=== PATIENT | female | born 1970 | race African-American/Black ===

== ENCOUNTER 2020-01-08 14:04 | Emergency (ER) | payer OTHER ==
[~2020-01-08] VITALS: Ht 170.2 cm; Wt 105.2 kg
[~2020-01-08 14:04] MED LIST: Lidocaine 1%/ 10mg/ml/EPI 0.01mg/ml 20ml INJ ONE
--- NOTE | 2020-01-08 14:16 | Emergency Room Report ---
History of Present Illness General Chief Complaint: Skin Rash/Abscess Source: Patient Present Illness HPI 49-year-old female, currently at a facility presents with upper back pain/skin lesion x1 week, no fever no chills, endorses sharp pain aggravated with touch itchiness, severity is moderate, constant no alleviating factors aggravating factors appear to be touching the wound patient presents for evaluation and treatment Allergies: Coded Allergies: LURASIDONE (Verified Allergy, Unknown, 01/08/20) PAROXETINE (Verified Allergy, Unknown, 01/08/20) COVID-19 Screening Contact w/high risk pt: No Experienced COVID-19 symptoms?: No COVID-19 Testing performed BARN HAND: No Patient History Past Medical History: see triage record Social History: Reports: smoking Reviewed Nursing Documentation: PMH: Agreed; PSxH: Agreed Review of Systems All Other Systems: negative except mentioned in HPI Physical Exam Vital Signs Date Time Temp Pulse Resp B/P (MAP) Pulse Ox O2 Delivery O2 Flow Rate FiO2 01/08/20 14:00 98.4 90 16 106/68 (81) 100 Room Air General Appearance: well appearing, no apparent distress Head: normocephalic, atraumatic ENT: hearing grossly normal, normal voice Neck: full range of motion, supple Respiratory: no respiratory distress, speaking full sentences Neurologic: alert, normal gait Psychiatric: mood/affect normal Skin: other - Abscess upper left lateral back Procedures Incision and Drainage Incision and Drainage : Consent: Emergent Site: Left upper back lateral Blade Size: 11 I & D Procedure: betadine prep, sterile drapes applied, sterile dressing applied, gauze wick placed Wound Location: back Wound's Depth, Shape: superficial Wound Length (cm): 2 Wound Explored: contaminated Irrigated w/ Saline (ccs): 250 Anesthesia: 1% Lidocaine, Lidocaine w/ Epi Volume Anesthetic (ccs): 10 Splint Applied?: No Patient Tolerated: Well Complications: None Medical Decision Making Diagnostic Impression: Primary Impression: Abscess ER Course 49-year-old female presents with left upper back abscess, wound was incised and drained, patient tolerated procedure well slight component of cellulitis, We will provide patient with Last Vital Signs Date Time Temp Pulse Resp B/P (MAP) Pulse Ox O2 Delivery O2 Flow Rate FiO2 01/08/20 14:00 98.4 90 16 106/68 (81) 100 Room Air Disposition: HOME, SELF-CARE Condition: Stable Scripts Trimethoprim/Sulfamethoxazole 160/800* (BACTRIM DS TABLET*) 1 Each Tablet 1 TAB ORAL Q12H, #20 TAB 0 Refills Prov: Maciel Armenta MD 01/08/20 Referrals: [facility] Dangeloismael [facility] Patient Instructions: Abscess Additional Instructions: The patient was provided with discharge instructions, notified to follow-up with a primary care doctor and or specialist in the next 24-48 hours, and to return to the ED if they have worsening of their symptoms. Please note that this report is being documented using [employer] technology. This can lead to erroneous entry secondary to incorrect interpretation by the dictating instrument. WOUND PACKING PER YOUR FACILITY PLEASE HAVE WOUND REPACKED IN 48 HOURS THEN PACKING CAN BE REMOVED ON DAY 4 Maciel Armenta MD Jan 08, 2020 14:16
[2020-01-08 14:20] VITALS: BP 106/68
[2020-01-08] MEDS ORDERED: BACTRIM DS TAB1 EAC1 ORAL (14:20)
--- NOTE | 2020-01-08 14:20 | NUR ---
ED Nurse Note:pt. came from board and care with abscess on mid back, it was I&D at bedside by Er MD, dry dressing with packing applied
[2020-01-08] MEDS ORDERED: IBUPROFEN600 M1 ORAL (14:22)
[2020-01-08] MEDS ORDERED: TYLENOL325 MG ORAL (14:22)
[2020-01-08 14:31] LABS: APPEARANCE,URINE CLEAR; BILIRUBIN, URINE NEGATIVE (NEGATIVE); GLUCOSE, URINE (UA) NEGATIVE (NEGATIVE); KETONES,URINE NEGATIVE (NEGATIVE); LEUKOCYTE ESTERASE ,URINE 1+ (NEGATIVE); NITRITE,URINE NEGATIVE (NEGATIVE); PH,URINE 8 (4.5-8.0); PROTEIN,URINE NEGATIVE (NEGATIVE); UROBILINOGEN,URINE NORMAL MG/DL (0.0-1.0)
[2020-01-08 14:33] LABS: COLOR,URINE YELLOW
--- NOTE | 2020-01-08 14:38 | NUR ---
ED Nurse Note: Pt cleared by health care Provider for discharge. DC instructions/prescription was given and explained to pt and verbalized understanding of teachings. All medical deviecs such as ID band removed. Pt is AAO x4, ambulatory and left with all personal belongings.
== END 2020-01-08 14:45 | disposition home or self-care (01) ==
LOC: EDBD 14:04 → EMR 14:36
DX: L02.212 Cutaneous abscess of back [any part, except buttock and flank] (principal); F17.200 Nicotine dependence, unspecified, uncomplicated; Z88.8 Allergy status to other drugs, medicaments and biological substances
CPT/HCPCS: 10060; 81003; 81025; Z7502; 99283

== ENCOUNTER 2020-01-16 18:57 | Inpatient (IN) | payer OTHER ==
[~2020-01-16] VITALS: Ht 170.2 cm; Wt 77.1 kg
[~2020-01-16 18:57] MED LIST changes: +BACTRIM DS TAB1 EAC1 ORAL; +IBUPROFEN600 M1 ORAL; -Lidocaine 1%/ 10mg/ml/EPI 0.01mg/ml 20ml INJ ONE; +TYLENOL325 MG ORAL
[2020-01-16] MEDS ORDERED: Acetaminophen 500mg (ES) tab ORAL ONE (19:15)
--- NOTE | 2020-01-16 19:42 | Emergency Room Report ---
History of Present Illness General Chief Complaint: Flu Like Symptoms Source: Patient Present Illness HPI 49-year-old female with history of asthma and COPD on Spiriva, rescue inhalers, Advair here with cough and subjective fever. Patient symptoms have been ongoing for 3 days and got acutely worse today. She has been using her rescue inhaler more frequently. Says she has had a productive cough with green sputum. Has generalized chest discomfort when she coughs only. Has had a headache and myalgias as well. Has not gotten a flu shot. Said that she felt like she had a fever but did not check her temperature. No chills, palpitations, back pain, abdominal pain, nausea, vomiting, diarrhea, dysuria. Allergies: Coded Allergies: LURASIDONE (Verified Allergy, Unknown, 01/08/20) PAROXETINE (Verified Allergy, Unknown, 01/08/20) COVID-19 Screening Contact w/high risk pt: No Experienced COVID-19 symptoms?: Yes COVID-19 Testing performed OPERATIONS TEAM LEADER: No Nursing Documentation-[facility] Past Medical History: No History, Except For Review of Systems All Other Systems: negative except mentioned in HPI Physical Exam Vital Signs Date Time Temp Pulse Resp B/P (MAP) Pulse Ox O2 Delivery O2 Flow Rate FiO2 01/16/20 18:59 100.2 90 17 122/84 (97) 99 Room Air Sp02 EP Interpretation: reviewed, normal General Appearance: no apparent distress, alert, non-toxic Head: normocephalic, atraumatic Eyes: bilateral eye normal inspection, bilateral eye PERRL ENT: hearing grossly normal, normal pharynx, no angioedema, normal voice Neck: full range of motion, supple/symm/no masses Respiratory: chest non-tender, speaking full sentences, other - Mild expiratory wheezes on examination diffusely Cardiovascular #1: regular rate, rhythm, no edema Cardiovascular #2: 2+ carotid (R), 2+ carotid (L), 2+ radial (R), 2+ radial (L), 2+ dorsalis pedis (R), 2+ dorsalis pedis (L) Gastrointestinal: normal bowel sounds, non tender, soft, non-distended, no guarding, no rebound Rectal: deferred Genitourinary: normal inspection, no CVA tenderness Musculoskeletal: back normal, normal range of motion, gait/station normal, non- tender Neurologic: alert, motor strength/tone normal, oriented x3, sensory intact, responsive, speech normal Psychiatric: judgement/insight normal, memory normal, mood/affect normal, no suicidal/homicidal ideation Lymphatic: no adenopathy Medical Decision Making Diagnostic Impression: Primary Impression: Influenza-like symptoms Additional Impressions: COPD exacerbation Hypokalemia ER Course EXAM: XR Chest, 1 View CLINICAL HISTORY: COUGH TECHNIQUE: Frontal view of the chest. COMPARISON: No relevant prior studies available. FINDINGS: Lungs: Unremarkable. No consolidation. Pleural space: Unremarkable. No pneumothorax. Heart: Unremarkable. No cardiomegaly. Mediastinum: Unremarkable. Bones/joints: Unremarkable. IMPRESSION: No acute cardiopulmonary disease. 49-year-old female with history of COPD and asthma here with generalized malaise and fever. Patient was hemodynamic stable and neurovascular intact. She had normal oxygen saturation on room air. She had a mildly elevated temperature of 100.2 and was given Tylenol. She had mild wheezing on examination no evidence of severe shortness of breath. She was given 60 mg of prednisone in the emergency department. She was found to be positive for cocaine, PCP, THC. Patient was found of a critically low potassium of 2.3. This was repleted in the emergency department with IV and p.o. potassium. EKG showed evidence of prolonged QTC of 499. Otherwise normal EKG. No U waves. Patient to be admitted to telemetry. Signed out to oncoming physician Dr. Killian. EKG: NSR, no ischemia, long QTC 499. No ectopy Rhythm strip: patient monitored for arrhythmias - no malignant dysrhythmias, runs of PVCs, nor pauses noted Last Vital Signs Date Time Temp Pulse Resp B/P (MAP) Pulse Ox O2 Delivery O2 Flow Rate FiO2 01/16/20 18:59 100.2 90 17 122/84 (97) 99 Room Air Joel Mayer M.D. Jan 16, 2020 19:42
[2020-01-16 19:51] VITALS: BP 122/84
--- NOTE | 2020-01-16 20:00 | Diagnostic Imaging Report ---
EXAM: XR Chest, 1 View CLINICAL HISTORY: COUGH TECHNIQUE: Frontal view of the chest. COMPARISON: No relevant prior studies available. FINDINGS: Lungs: Unremarkable. No consolidation. Pleural space: Unremarkable. No pneumothorax. Heart: Unremarkable. No cardiomegaly. Mediastinum: Unremarkable. Bones/joints: Unremarkable. IMPRESSION: No acute cardiopulmonary disease.
[2020-01-16 20:22] LABS: BASOPHILS % (AUTO) 1.2 % (0.0-2.0); EOSINOPHILS % (AUTO) 4.3 % (0.0-3.0); HEMATOCRIT 35.3 % (37.0-47.0); HEMOGLOBIN 11.3 G/DL (12.0-16.0); LYMPHOCYTES % (AUTO) 40.6 % (20.0-45.0); MEAN CORPUSCULAR VOLUME 86 FL (80-99); MONOCYTES % (AUTO) 8.2 % (1.0-10.0); NEUTROPHILS % (AUTO) 45.7 % (45.0-75.0); PLATELET COUNT 246 K/UL (150-450); RED BLOOD COUNT 4.11 M/UL (4.20-5.40); RED CELL DISTRIBUTION WIDTH 15.3 % (11.6-14.8); WHITE BLOOD COUNT 4.4 K/UL (4.8-10.8)
[2020-01-16 20:26] LABS: ALANINE AMINOTRANSFERASE 35 U/L (12-78); ALBUMIN 3.3 G/DL (3.4-5.0); ALBUMIN/GLOBULIN RATIO 0.8 (1.0-2.7); ALKALINE PHOSPHATASE 77 U/L (46-116); ASPARTATE AMINO TRANSFERASE 30 U/L (15-37); BILIRUBIN,TOTAL 0.3 MG/DL (0.2-1.0); BLOOD UREA NITROGEN 12 mg/dL (7-18); CALCIUM 8.5 MG/DL (8.5-10.1)
[2020-01-16 20:29] LABS: CARBON DIOXIDE 25 MMOL/L (21-32); CHLORIDE 105 MMOL/L (98-107); POTASSIUM 2.3 MMOL/L (3.5-5.1); SODIUM 140 MMOL/L (136-145)
[2020-01-16 20:30] LABS: ANION GAP 10 mmol/L (5-15)
[2020-01-16 20:43] LABS: BILIRUBIN, URINE NEGATIVE (NEGATIVE); COLOR,URINE PALE YELLOW; GLUCOSE, URINE (UA) NEGATIVE (NEGATIVE); KETONES,URINE NEGATIVE (NEGATIVE); LEUKOCYTE ESTERASE ,URINE 1+ (NEGATIVE); NITRITE,URINE NEGATIVE (NEGATIVE); PH,URINE 8 (4.5-8.0); PROTEIN,URINE NEGATIVE (NEGATIVE); UROBILINOGEN,URINE NORMAL MG/DL (0.0-1.0)
[2020-01-16 20:47] LABS: APPEARANCE,URINE SLIGHTLY CLOUDY
[2020-01-16] MEDS ORDERED: cefTRIAXone 1 GM in NS 55 ML IVPB ONE (21:15)
[2020-01-16 22:30] VITALS: BP 134/90
[2020-01-16] MEDS: Albuterol/Ipratropium 3ml neb HHN SCH ×5 (22:30→23:37)
[2020-01-17] VITALS (7 sets, daily range): BP systolic 114–146; BP diastolic 60–87
[2020-01-17 02:48] LABS: ALANINE AMINOTRANSFERASE 33 U/L (12-78); ALBUMIN 3.1 G/DL (3.4-5.0); ALBUMIN/GLOBULIN RATIO 0.8 (1.0-2.7); ALKALINE PHOSPHATASE 74 U/L (46-116); ASPARTATE AMINO TRANSFERASE 25 U/L (15-37); BILIRUBIN,TOTAL 0.2 MG/DL (0.2-1.0); BLOOD UREA NITROGEN 9 mg/dL (7-18); CALCIUM 8.1 MG/DL (8.5-10.1); CARBON DIOXIDE 24 MMOL/L (21-32)
[2020-01-17 02:56] LABS: CHLORIDE 108 MMOL/L (98-107); POTASSIUM 2.9 MMOL/L (3.5-5.1); SODIUM 140 MMOL/L (136-145)
[2020-01-17] MEDS ORDERED: Omnipaque-300 100ml vial INJ ONE (03:15)
[2020-01-17] MEDS ORDERED: Albuterol/Ipratropium 3ml neb HHN ONE (03:15)
[2020-01-17] MEDS ORDERED: Fluconazole 150mg tab ONE (04:28)
[2020-01-17] MEDS ORDERED: Fluconazole 150mg tab ORAL ONE (04:30)
--- NOTE | 2020-01-17 05:08 | Diagnostic Imaging Report ---
EXAM: CT Lumbar Spine With Intravenous Contrast CLINICAL HISTORY: PAIN TECHNIQUE: Axial computed tomography images of the lumbar spine with intravenous contrast. CTDI is 15.20 mGy and DLP is 832.40 mGy-cm. One or more of the following dose reduction techniques were used: automated exposure control, adjustment of the mA and/or kV according to patient size, use of iterative reconstruction technique. COMPARISON: No relevant prior studies available. FINDINGS: The vertebral body heights are maintained. The lumbar lordosis is preserved. There is no spondylolisthesis. The posterior elements are maintained, without evidence of acute fracture. The pedicles are intact. Multilevel degenerative end plate changes. The disc spaces are relatively preserved. Calcified disc bulge at L2-3 which contribute to mild spinal canal stenosis. Disc bulge at L4-5 which contribute to mild spinal canal stenosis. Moderate bilateral foraminal stenosis at L4-5. Atherosclerotic calcifications of the aorta. The kidneys symmetrically enhance. No hydronephrosis. Moderate fatigue with tension, correlate for constipation. Normal CT appearance of the uterus and urinary bladder. Intact superior and inferior pubic rami with degenerative changes of the bilateral hips. IMPRESSION: No lumbar spine fracture. Multilevel lumbar spondylosis, as described.
[2020-01-17] MEDS ORDERED: BUPROPION HCL75 MG PO (12:27)
[2020-01-17] MEDS ORDERED: QUETIAPINE FUM400 MG ORAL (12:27)
[2020-01-17] MEDS ORDERED: BUPROPION XL300 MG ORAL (12:27)
[2020-01-17] MEDS ORDERED: SEROQUEL200 MG ORAL (12:27)
[2020-01-17] MEDS ORDERED: TOPIRAMATE100 MG ORAL (12:27)
[2020-01-17] MEDS ORDERED: FERROUS SULFAT325 MG ORAL (12:55)
[2020-01-17] MEDS ORDERED: AMLODIPINE BESYL5 MG ORAL (12:55)
[2020-01-17] MEDS ORDERED: HYDROCHLOROTHIA25 MG ORAL (12:55)
[2020-01-17] MEDS ORDERED: MINIPRESS1 MG PO (12:55)
[2020-01-17] MEDS ORDERED: GABAPENTIN800 MG ORAL (12:55)
[2020-01-17] MEDS ORDERED: ATIVAN1 MG ORAL (12:55)
[2020-01-17] MEDS ORDERED: Spironolactone 25mg tab ORAL SCH (13:30)
--- NOTE | 2020-01-17 13:36 | Consultation ---
History of Present Illness General Date patient seen: Jan 17, 2020 Reason for Hospitalization: Flu Like Symptoms Present Illness HPI This is a very pleasant 49-year-old female with history of COPD on inhalers that recently presented to emergency department with a back abscess status post I&D and now being admitted for respiratory issues will states that she still has pain in that area with skin breakdown discomfort she cannot reach her self see herself and surgery was called to evaluate and assist with care. Patient seen, patient evaluated, chart reviewed no nausea vomiting fever chills. States she feels better but can notice when she wears her bra that there is a abnormality back there and would like it evaluated. Allergies: Coded Allergies: LURASIDONE (Verified Allergy, Unknown, 01/08/20) PAROXETINE (Verified Allergy, Unknown, 01/08/20) COVID-19 Screening Contact w/high risk pt: No Experienced COVID-19 symptoms?: Yes Coronavirus symptoms experienc: Fever (T>100.4F or >38C) Medication History Scheduled Amlodipine Besylate* (Amlodipine Besylate*), 5 MG ORAL DAILY, (Reported) Bupropion Hcl* (Bupropion Hcl*), 75 MG PO TID, (Reported) Bupropion Hcl* (Wellbutrin*), 300 MG ORAL DAILY, (Reported) Ferrous Sulfate* (Ferrous Sulfate*), 325 MG ORAL TWICE A DAY, (Reported) Gabapentin* (Gabapentin*), 800 MG ORAL BID, (Reported) Hydrochlorothiazide* (Hydrochlorothiazide*), 25 MG ORAL DAILY, (Reported) Lorazepam* (Ativan*), 1 MG ORAL BID, (Reported) Prazosin Hcl* (Minipress*), 2 MG PO QHS, (Reported) Quetiapine Fumarate* (Seroquel*), 200 MG ORAL DAILY, (Reported) Quetiapine Fumarate* (Quetiapine Fumarate*), 400 MG ORAL QHS, (Reported) Topiramate* (Topamax*), 200 MG ORAL QHS, (Reported) Scheduled PRN Acetaminophen (Tylenol), 650 MG ORAL Q6H PRN for Prn Pain/Headache/Temp > 101 Discontinued Medications Ibuprofen* (Motrin*), 600 MG ORAL Q8H PRN for FOR PAIN Discontinued Reason: Therapy completed Trimethoprim/Sulfamethoxazole 160/800* (Bactrim Ds Tablet*), 1 TAB ORAL Q12H Discontinued Reason: Therapy completed Patient History History Provided By: Patient, Medical Record, PMD Healthcare decision maker Resuscitation status Advanced Directive on File Past Medical/Surgical History Past Medical/Surgical History: (1) Abscess (2) Hypokalemia (3) Influenza-like symptoms (4) Weakness (5) COPD exacerbation Review of Systems Review of Symptoms General ROS: no weight loss or fever Psychological ROS: no depression or mood changes, no memory loss Ophthalmic ROS: no visual changes or eye irritation ENT ROS: no nasal congestion, hearing loss, dizziness Allergy and Immunology ROS: no allergic symptoms or urticaria Hematological and Lymphatic ROS: no swollen glands, unusual bleeding or bruising Endocrine ROS: no polyuria, polydipsia, weight changes, temperature intolerance Respiratory ROS: no cough, shortness of breath, or wheezing Cardiovascular ROS: no chest pain or dyspnea on exertion Gastrointestinal ROS: denies abdominal pain, bright red blood in stool. Musculoskeletal ROS: no myalgias or arthralgias Neurological ROS: no TIA or stroke symptoms Dermatological ROS: no new or changing skin lesions, rashes or pruritis Physical Exam Physical Exam General appearance: alert, cooperative, no distress, appears stated age Head: Normocephalic, without obvious abnormality, atraumatic Eyes: conjunctivae/corneas clear. PERRL, EOM's intact. Fundi benign Throat: Lips, mucosa, and tongue normal. Teeth and gums normal Neck: supple, symmetrical, trachea midline, no adenopathy, thyroid: not enlarged, symmetric, no tenderness/mass/nodules, no carotid bruit and no JVD Lungs: clear to auscultation bilaterally Heart: regular rate and rhythm, S1, S2 normal, no murmur, click, rub or gallop Abdomen: soft, non-tender. Bowel sounds normal. No masses, no organomegaly Extremities: extremities normal, atraumatic, no cyanosis or edema Pulses: 2+ and symmetric Skin: Skin color, texture, turgor normal. No rashes or lesions Neurologic: Grossly normal Last 24 Hour Vital Signs Date Time Temp Pulse Resp B/P (MAP) Pulse Ox O2 Delivery O2 Flow Rate FiO2 01/17/20 08:14 98.5 86 19 144/82 100 Room Air 01/17/20 07:05 98.2 88 21 135/84 98 Room Air 01/17/20 05:00 98.0 82 20 145/80 98 Room Air 21 01/17/20 03:22 73 24 100 Room Air 21 76 19 99 01/17/20 02:32 98.4 76 16 128/87 100 Room Air 21 01/16/20 23:30 86 20 100 Room Air 21 83 20 100 01/16/20 23:20 81 20 100 Room Air 21 78 20 100 01/16/20 23:10 79 20 100 Room Air 21 76 20 98 01/16/20 22:30 99.8 78 17 134/90 99 Room Air 01/16/20 20:14 99.1 01/16/20 19:51 100.2 90 17 122/84 99 Room Air 01/16/20 19:51 90 17 Room Air 01/16/20 18:59 100.2 90 17 122/84 (97) 99 Room Air Laboratory Tests Test 01/16/20 19:45 01/17/20 02:25 White Blood Count 4.4 K/UL (4.8-10.8) L Red Blood Count 4.11 M/UL (4.20-5.40) L Hemoglobin 11.3 G/DL (12.0-16.0) L Hematocrit 35.3 % (37.0-47.0) L Mean Corpuscular Volume 86 FL (80-99) Mean Corpuscular Hemoglobin 27.5 PG (27.0-31.0) Mean Corpuscular Hemoglobin Concent 32.0 G/DL (32.0-36.0) Red Cell Distribution Width 15.3 % (11.6-14.8) H Platelet Count 246 K/UL (150-450) Mean Platelet Volume 8.0 FL (6.5-10.1) Neutrophils (%) (Auto) 45.7 % (45.0-75.0) Lymphocytes (%) (Auto) 40.6 % (20.0-45.0) Monocytes (%) (Auto) 8.2 % (1.0-10.0) Eosinophils (%) (Auto) 4.3 % (0.0-3.0) H Basophils (%) (Auto) 1.2 % (0.0-2.0) Urine Color Pale yellow Urine Appearance Slightly cloudy Urine pH 8 (4.5-8.0) Urine Specific Phyllis 1.010 (1.005-1.035) Urine Protein Negative (NEGATIVE) Urine Glucose (UA) Negative (NEGATIVE) Urine Ketones Negative (NEGATIVE) Urine Blood 3+ (NEGATIVE) H Urine Nitrite Negative (NEGATIVE) Urine Bilirubin Negative (NEGATIVE) Urine Urobilinogen Normal MG/DL (0.0-1.0) Urine Leukocyte Esterase 1+ (NEGATIVE) H Urine RBC 2-4 /HPF (0 - 2) H Urine WBC 0-2 /HPF (0 - 2) Urine Squamous Epithelial Cells Many /LPF (NONE/OCC) H Urine Bacteria Moderate /HPF (NONE) H Urine HCG, Qualitative Negative (NEGATIVE) Sodium Level 140 MMOL/L (136-145) 140 MMOL/L (136-145) Potassium Level 2.3 MMOL/L (3.5-5.1) *L 2.9 MMOL/L (3.5-5.1) L Chloride Level 105 MMOL/L (98-107) 108 MMOL/L (98-107) H Carbon Dioxide Level 25 MMOL/L (21-32) 24 MMOL/L (21-32) Anion Gap 10 mmol/L (5-15) Blood Urea Nitrogen 12 mg/dL (7-18) 9 mg/dL (7-18) Creatinine 1.0 MG/DL (0.55-1.30) 1.0 MG/DL (0.55-1.30) Estimat Glomerular Filtration Rate > 60 mL/min (>60) > 60 mL/min (>60) Glucose Level 98 MG/DL (74-106) 142 MG/DL (74-106) H Calcium Level 8.5 MG/DL (8.5-10.1) 8.1 MG/DL (8.5-10.1) L Magnesium Level 2.4 MG/DL (1.8-2.4) Total Bilirubin 0.3 MG/DL (0.2-1.0) 0.2 MG/DL (0.2-1.0) Aspartate Amino Transf (AST/SGOT) 30 U/L (15-37) 25 U/L (15-37) Alanine Aminotransferase (ALT/SGPT) 35 U/L (12-78) 33 U/L (12-78) Alkaline Phosphatase 77 U/L (46-116) 74 U/L (46-116) Total Protein 7.3 G/DL (6.4-8.2) 7.2 G/DL (6.4-8.2) Albumin 3.3 G/DL (3.4-5.0) L 3.1 G/DL (3.4-5.0) L Globulin 4.0 g/dL 4.1 g/dL Albumin/Globulin Ratio 0.8 (1.0-2.7) L 0.8 (1.0-2.7) L Urine Opiates Screen Negative (NEGATIVE) Urine Barbiturates Screen Negative (NEGATIVE) Phencyclidine (PCP) Screen Positive (NEGATIVE) H Urine Amphetamines Screen Negative (NEGATIVE) Urine Benzodiazepines Screen Negative (NEGATIVE) Urine Cocaine Screen Positive (NEGATIVE) H Urine Marijuana (THC) Screen Positive (NEGATIVE) H Thyroid Stimulating Hormone (TSH) 1.628 uiU/mL (0.358-3.740) Microbiology Date/Time Source Procedure Growth Status 01/16/20 21:30 Nasopharynx SARS-CoV-2 RdRp Gene Assay - Final Complete 01/16/20 19:45 Nose - Final Complete 01/16/20 19:45 Nose - Final Complete Height (Feet): 5 Height (Inches): 7.00 Weight (Pounds): 170 Medications Current Medications Medications (Trade) Dose Ordered Sig/Adelso Route PRN Reason Start Time Stop Time Status Last Admin Dose Admin Albuterol/ Ipratropium (Albuterol/ Ipratropium) 3 ml Q15M [facility] 01/16/20 21:30 01/17/20 17:00 01/16/20 23:29 Albuterol/ Ipratropium (Albuterol/ Ipratropium) 3 ml Q4HRT [facility] 01/17/20 15:00 01/22/20 14:59 Amlodipine Besylate (Norvasc) 5 mg DAILY ORAL 01/18/20 09:00 02/17/20 08:59 Bupropion HCl (Wellbutrin SR) 300 mg DAILY ORAL 01/17/20 13:30 02/16/20 13:29 Ceftriaxone Sodium 1 gm/ Dextrose 55 ml @ 110 mls/hr Q24H IVPB 01/17/20 18:00 01/24/20 17:59 Clonidine HCl (Catapres Tab) 0.1 mg Q4H PRN ORAL sbp above 150 01/17/20 13:30 04/16/20 13:29 Lactobacillus Acidophilus (Culturelle) 1 tab THREE TIMES A DAY ORAL 01/17/20 18:00 04/16/20 17:59 Lorazepam (Ativan) 1 mg BIDPRN PRN ORAL anxiety 01/17/20 13:30 01/24/20 13:29 Potassium Chloride (K-Dur) 40 meq ONCE ORAL 01/17/20 13:30 01/17/20 16:00 Quetiapine Fumarate (SEROqueL) 200 mg DAILY ORAL 01/18/20 09:00 03/03/20 08:59 Quetiapine Fumarate (SEROqueL) 400 mg BEDTIME ORAL 01/17/20 21:00 03/02/20 20:59 Spironolactone (Aldactone) 25 mg DAILY ORAL 01/18/20 09:00 02/17/20 08:59 Spironolactone (Aldactone) 25 mg ONCE ORAL 01/17/20 13:30 01/17/20 16:30 Assessment/Plan Problem List: (1) Hypokalemia ICD Codes: E87.6 - Hypokalemia SNOMED: 05930218 (2) Influenza-like symptoms ICD Codes: R68.89 - Other general symptoms and signs SNOMED: 293817764 (3) Abscess Assessment & Plan: 49-year-old female with a back abscess status post I&D a few days ago which is slowly healing since. There is a soft area induration still remaining no fluid collection no fluctuance I&D site noted healed closing. Scab formation identified. Periwound skin breakdown the epidermal region with dry skin. Fortunately at this time no further incision and drainage is necessary. Wound washed at bedside. Skin protectant applied for patient discomfort. Dressings applied. Will monitor over the course next day or 2 to ensure healing. Thank you for let me participate patient's care will follow with recommendations. The posterior elements are maintained, without evidence of acute fracture. The pedicles are intact. Multilevel degenerative end plate changes. The disc spaces are relatively preserved. Calcified disc bulge at L2-3 which contribute to mild spinal canal stenosis. Disc bulge at L4-5 which contribute to mild spinal canal stenosis. Moderate bilateral foraminal stenosis at L4-5. Atherosclerotic calcifications of the aorta. The kidneys symmetrically enhance. No hydronephrosis. Moderate fatigue with tension, correlate for constipation. Normal CT appearance of the uterus and urinary bladder. Intact superior and inferior pubic rami with degenerative changes of the bilateral hips. IMPRESSION: No lumbar spine fracture. Multilevel lumbar spondylosis, as described. ICD Codes: L02.91 - Cutaneous abscess, unspecified SNOMED: 708243434 (4) Weakness ICD Codes: R53.1 - Weakness SNOMED: 81602108 (5) COPD exacerbation ICD Codes: J44.1 - Chronic obstructive pulmonary disease with (acute) exacerbation SNOMED: 652986505 Yfn Sparks Jan 17, 2020 13:36
[2020-01-17] MEDS: BuPROPion SR 150mg tab ORAL SCH (15:12)
[2020-01-17] MEDS: Albuterol/Ipratropium 3ml neb HHN SCH ×3 (15:50→23:21)
[2020-01-17] MEDS: cefTRIAXone 1 GM in D5W 55 ML IVPB SCH (17:30)
[2020-01-17] MEDS: Lactobacillus-GG tablet ORAL SCH (17:30)
[2020-01-17] MEDS: LORazepam 1mg tab ORAL PRN (18:48)
--- NOTE | 2020-01-17 19:25 | Cardiology Progress Note ---
Subjective DATE OF SERVICE: Jan 17, 2020 Combative and refusing care early this morning; now cooperative and compliant. States she is upset about having low potassium all the time. Says she knows she has PNA. Now says she has COPD since age 28. Urine tox. screen positive for PCP and cocaine. Objective Last 24 Hour Vital Signs Date Time Temp Pulse Resp B/P (MAP) Pulse Ox O2 Delivery O2 Flow Rate FiO2 01/17/20 18:48 108 24 146/70 94 01/17/20 16:00 79 01/17/20 16:00 97.5 108 20 146/70 (95) 94 01/17/20 15:50 12 18 98 Room Air 21 01/17/20 15:50 78 20 99 Room Air 21 72 18 98 01/17/20 14:22 Room Air 01/17/20 12:00 97.5 107 20 114/60 (78) 92 01/17/20 08:14 98.5 86 19 144/82 100 Room Air 01/17/20 08:00 97.5 70 22 124/67 (86) 92 01/17/20 07:05 98.2 88 21 135/84 98 Room Air 01/17/20 05:00 98.0 82 20 145/80 98 Room Air 21 01/17/20 03:22 73 24 100 Room Air 21 76 19 99 01/17/20 02:32 98.4 76 16 128/87 100 Room Air 21 01/16/20 23:30 86 20 100 Room Air 21 83 20 100 01/16/20 23:20 81 20 100 Room Air 21 78 20 100 01/16/20 23:10 79 20 100 Room Air 21 76 20 98 01/16/20 22:30 99.8 78 17 134/90 99 Room Air 01/16/20 20:14 99.1 01/16/20 19:51 100.2 90 17 122/84 99 Room Air 01/16/20 19:51 90 17 Room Air ROS: unchanged from 01/16/20, unless noted. HEENT: normal ENT inspection, other - scant thrush; tongue ring site clean RHYTHM: NSR LUNGS: bilateral rhonchi - few CARDIAC: normal rate, regular rhythm, normal S1 and S2 ABDOMEN: normal bowel sounds, non tender, soft, no organomegaly EXTREMITIES: normal range of motion, non-tender, trace edema, other - strength intact, but gait unsteady Laboratory Tests Test 01/16/20 19:45 01/17/20 02:25 White Blood Count 4.4 K/UL (4.8-10.8) L Red Blood Count 4.11 M/UL (4.20-5.40) L Hemoglobin 11.3 G/DL (12.0-16.0) L Hematocrit 35.3 % (37.0-47.0) L Mean Corpuscular Volume 86 FL (80-99) Mean Corpuscular Hemoglobin 27.5 PG (27.0-31.0) Mean Corpuscular Hemoglobin Concent 32.0 G/DL (32.0-36.0) Red Cell Distribution Width 15.3 % (11.6-14.8) H Platelet Count 246 K/UL (150-450) Mean Platelet Volume 8.0 FL (6.5-10.1) Neutrophils (%) (Auto) 45.7 % (45.0-75.0) Lymphocytes (%) (Auto) 40.6 % (20.0-45.0) Monocytes (%) (Auto) 8.2 % (1.0-10.0) Eosinophils (%) (Auto) 4.3 % (0.0-3.0) H Basophils (%) (Auto) 1.2 % (0.0-2.0) Urine Color Pale yellow Urine Appearance Slightly cloudy Urine pH 8 (4.5-8.0) Urine Specific [place] 1.010 (1.005-1.035) Urine Protein Negative (NEGATIVE) Urine Glucose (UA) Negative (NEGATIVE) Urine Ketones Negative (NEGATIVE) Urine Blood 3+ (NEGATIVE) H Urine Nitrite Negative (NEGATIVE) Urine Bilirubin Negative (NEGATIVE) Urine Urobilinogen Normal MG/DL (0.0-1.0) Urine Leukocyte Esterase 1+ (NEGATIVE) H Urine RBC 2-4 /HPF (0 - 2) H Urine WBC 0-2 /HPF (0 - 2) Urine Squamous Epithelial Cells Many /LPF (NONE/OCC) H Urine Bacteria Moderate /HPF (NONE) H Urine HCG, Qualitative Negative (NEGATIVE) Sodium Level 140 MMOL/L (136-145) 140 MMOL/L (136-145) Potassium Level 2.3 MMOL/L (3.5-5.1) *L 2.9 MMOL/L (3.5-5.1) L Chloride Level 105 MMOL/L (98-107) 108 MMOL/L (98-107) H Carbon Dioxide Level 25 MMOL/L (21-32) 24 MMOL/L (21-32) Anion Gap 10 mmol/L (5-15) Blood Urea Nitrogen 12 mg/dL (7-18) 9 mg/dL (7-18) Creatinine 1.0 MG/DL (0.55-1.30) 1.0 MG/DL (0.55-1.30) Estimat Glomerular Filtration Rate > 60 mL/min (>60) > 60 mL/min (>60) Glucose Level 98 MG/DL (74-106) 142 MG/DL (74-106) H Calcium Level 8.5 MG/DL (8.5-10.1) 8.1 MG/DL (8.5-10.1) L Magnesium Level 2.4 MG/DL (1.8-2.4) Total Bilirubin 0.3 MG/DL (0.2-1.0) 0.2 MG/DL (0.2-1.0) Aspartate Amino Transf (AST/SGOT) 30 U/L (15-37) 25 U/L (15-37) Alanine Aminotransferase (ALT/SGPT) 35 U/L (12-78) 33 U/L (12-78) Alkaline Phosphatase 77 U/L (46-116) 74 U/L (46-116) Total Protein 7.3 G/DL (6.4-8.2) 7.2 G/DL (6.4-8.2) Albumin 3.3 G/DL (3.4-5.0) L 3.1 G/DL (3.4-5.0) L Globulin 4.0 g/dL 4.1 g/dL Albumin/Globulin Ratio 0.8 (1.0-2.7) L 0.8 (1.0-2.7) L Urine Opiates Screen Negative (NEGATIVE) Urine Barbiturates Screen Negative (NEGATIVE) Phencyclidine (PCP) Screen Positive (NEGATIVE) H Urine Amphetamines Screen Negative (NEGATIVE) Urine Benzodiazepines Screen Negative (NEGATIVE) Urine Cocaine Screen Positive (NEGATIVE) H Urine Marijuana (THC) Screen Positive (NEGATIVE) H Thyroid Stimulating Hormone (TSH) 1.628 uiU/mL (0.358-3.740) Microbiology Date/Time Source Procedure Growth Status 01/16/20 21:30 Nasopharynx SARS-CoV-2 RdRp Gene Assay - Final Complete 01/16/20 19:45 Nose - Final Complete 01/16/20 19:45 Nose - Final Complete Assessment/Plan Assessment/Plan COPD exacerbation Polysubstance abuse Possible PNA Possible Covid-19 infection Hypokalemia due to thiazide therapy Hypertension/HHD Bipolar dis with probable hx psychosis Back abscess - s/p I&D, now healing. Abx Await Covid swab Bronchodilators Steroids with taper DVT prophyl PT eval to follow Replace potassium No resumption of thiazide; add aldactone for interim. Patient made aware of diuretic rx and associated risk of hypokalemia. Skin care; surgical input appreciated. Counselling regarding cocaine and PCP use. Kwesi Barton MD Jan 17, 2020 19:25
[2020-01-17] MEDS ORDERED: QUETIAPINE FUM200 MG ORAL (19:59)
[2020-01-17] MEDS ORDERED: TAB-A-VITE TA400 MCG PO (19:59)
[2020-01-17] MEDS ORDERED: PRAZOSIN HCL2 MG PO (19:59)
[2020-01-17] MEDS ORDERED: MELOXICAM15 MG PO (19:59)
[2020-01-17] MEDS ORDERED: CARISOPRODOL350 MG ORAL (19:59)
[2020-01-17] MEDS ORDERED: OMEPRAZOLE20 M2 ORAL (19:59)
[2020-01-17] MEDS: Solu-MEDROL 40mg Inj IVP SCH (21:40)
[2020-01-17] MEDS: Heparin 5000 units/ml inj SUBQ SCH (21:41)
[2020-01-17] MEDS: QUEtiapine 200mg tab ORAL SCH (21:41)
--- NOTE | 2020-01-17 22:00 | History and Physical Report ---
DATE OF ADMISSION: 01/16/2020 REASON FOR ADMISSION: Possible pneumonia, COPD exacerbation, and hypokalemia. HISTORY OF PRESENT ILLNESS: This is a 49-year-old female. She has a history of COPD. She is on chronic inhaler therapy. She also takes a multi-drug blood pressure regimen at home. She states for the past 3 days, she has been increasingly congested with cough and thinks she has had fevers. She notes worsening today. She has used her inhaler more frequently and notes her cough is now productive of green sputum. The patient notes chest pain with coughing only. She has had headaches. She has not had any nausea, vomiting, or diarrhea. The patient has also been on antibiotics for a recent drainage of a back abscess and notes that that has not been improving as well as she can see. The patient is unaware of any COVID-19 exposures and has not had a COVID-19 test prior to her visit here. PAST MEDICAL HISTORY: Hypertension, COPD, and bipolar disorder. ALLERGIES: Include paroxetine and lurasidone. MEDICATIONS: Reviewed and reconciled. FAMILY HISTORY: Noncontributory. SOCIAL HISTORY: She denies smoking, alcohol, or substance abuse. REVIEW OF SYSTEMS: A 10-point review of systems performed. All negative other than noted above. PHYSICAL EXAMINATION: VITAL SIGNS: Blood pressure 122/84, heart rate 90, respiratory rate 17, temperature 100.2, and oxygen saturation on room air 99%. HEENT: Conjunctivae pink. Sclerae are anicteric. Oropharynx clear. Tongue with trace of thrush. There is a tongue ring proximally with no signs of an infection. NECK: Supple. LUNGS: With coarse breath sounds, rhonchi, and few expiratory wheezes. CARDIAC: Regular rhythm and rate. Normal S1, S2 with no murmur. BREASTS: Without discrete masses. ABDOMEN: Soft and nontender. EXTREMITIES: Good pulses with trace edema, strength intact, but the patient feels unsteady with weightbearing. SKIN: The back abscess site is clean and dry with no fluctuance and scab formation noted. DIAGNOSTIC DATA: Chest x-ray with no acute process. EKG with sinus rhythm, prolonged QTc of almost 500 milliseconds. LABORATORY DATA: White count 4.4, hemoglobin 11.3. Urinalysis with no active sediment. Urine-tox screen is positive for cocaine, PCP, and marijuana. Sodium 140, potassium 2.3, bicarb 25, BUN 12, creatinine 1, and albumin 3.3. IMPRESSION: Polysubstance abuse, acute bronchitis and possible pneumonia, COPD exacerbation, severe hypokalemia, mild protein-calorie malnutrition, resolving back abscess, toxic encephalopathy. PLAN: Potassium replacement. Cardiac monitoring. IV fluid hydration. Bronchodilators. Steroids. COVID-19 swab. Empiric antimicrobials. DVT prophylaxis. Antipsychotic therapy as needed. Withdrawal precautions. Subsequent counseling regarding substance abuse will be required. Kwesi Barton M.D. DR: Elieser JOB#: [id number] CC:
[2020-01-18] VITALS: BP 101/63
[2020-01-18 04:00] VITALS: BP 115/67
[2020-01-18] MEDS: Albuterol/Ipratropium 3ml neb HHN SCH ×5 (07:00→23:00)
[2020-01-18 08:09] VITALS: BP 113/69
[2020-01-18] MEDS: Solu-MEDROL 40mg Inj IVP SCH (08:53)
[2020-01-18] MEDS: Lactobacillus-GG tablet ORAL SCH ×3 (08:54→17:20)
[2020-01-18] MEDS ORDERED: Tubing IV Secondary IV ONE (08:54)
[2020-01-18] MEDS: QUEtiapine 200mg tab ORAL SCH ×2 (08:54→20:17)
[2020-01-18] MEDS: BuPROPion SR 150mg tab ORAL SCH (08:55)
[2020-01-18] MEDS: Spironolactone 25mg tab ORAL SCH (08:55)
[2020-01-18] MEDS: Heparin 5000 units/ml inj SUBQ SCH ×2 (09:01→20:00)
[2020-01-18 09:14] LABS: HEMATOCRIT 38.1 % (37.0-47.0); HEMOGLOBIN 11.2 G/DL (12.0-16.0); MEAN CORPUSCULAR VOLUME 98 FL (80-99); PLATELET COUNT 108 K/UL (150-450); RED BLOOD COUNT 3.88 M/UL (4.20-5.40); RED CELL DISTRIBUTION WIDTH 13.8 % (11.6-14.8); WHITE BLOOD COUNT 3.2 K/UL (4.8-10.8)
--- NOTE | 2020-01-18 09:44 | Diagnostic Imaging Report ---
EXAM: XR Chest, 2 Views CLINICAL HISTORY: ABN CHST TECHNIQUE: Frontal and lateral views of the chest. COMPARISON: No relevant prior studies available. FINDINGS: Lungs: Unremarkable. No consolidation. Pleural space: Unremarkable. No pneumothorax. Heart: Unremarkable. No cardiomegaly. Mediastinum: Unremarkable. Bones/joints: Degenerative changes. IMPRESSION: No focal infiltrate.
[2020-01-18 10:03] LABS: ALANINE AMINOTRANSFERASE 14 U/L (12-78); ALBUMIN 2.8 G/DL (3.4-5.0); ALBUMIN/GLOBULIN RATIO 0.8 (1.0-2.7); ALKALINE PHOSPHATASE 55 U/L (46-116); ANION GAP 7 mmol/L (5-15); ASPARTATE AMINO TRANSFERASE 21 U/L (15-37); BILIRUBIN,TOTAL 0.6 MG/DL (0.2-1.0); BLOOD UREA NITROGEN 12 mg/dL (7-18); CALCIUM 8.4 MG/DL (8.5-10.1); CARBON DIOXIDE 25 MMOL/L (21-32); CHLORIDE 110 MMOL/L (98-107); CREATININE 0.8 MG/DL (0.55-1.30); POTASSIUM 3.7 MMOL/L (3.5-5.1); SODIUM 142 MMOL/L (136-145)
[2020-01-18 12:00] VITALS: BP 120/72
[2020-01-18 16:00] VITALS: BP 115/72
[2020-01-18] MEDS: cefTRIAXone 1 GM in D5W 55 ML IVPB SCH (17:24)
[2020-01-18] MEDS: LORazepam 1mg tab ORAL PRN (17:28)
--- NOTE | 2020-01-18 17:44 | Surgery Progress Note ---
Surgery Progress Note Subjective Symptoms: improved, tolerating diet, passing flatus, BM, pain decreased Objective Last 24 Hour Vital Signs Date Time Temp Pulse Resp B/P (MAP) Pulse Ox O2 Delivery O2 Flow Rate FiO2 01/18/20 17:28 75 18 115/72 100 01/18/20 16:00 97.5 75 18 115/72 (86) 100 01/18/20 12:00 97.7 70 18 120/72 (88) 100 01/18/20 08:54 72 113/69 01/18/20 08:45 Room Air 01/18/20 08:09 98.1 72 18 113/69 (84) 99 01/18/20 04:00 97.9 85 20 115/67 (83) 98 01/18/20 00:00 97.7 81 20 101/63 (76) 100 01/18/20 00:00 76 01/17/20 23:29 75 16 99 Room Air 21 81 17 96 01/17/20 21:00 Room Air 01/17/20 20:00 97.8 73 20 117/70 (86) 100 01/17/20 20:00 74 01/17/20 19:49 73 18 99 Room Air 21 70 16 99 01/17/20 19:18 73 20 117/70 100 01/17/20 18:48 108 24 146/70 94 I&O Intake and Output 01/17/20 01/18/20 19:00 07:00 Intake Total 720 ml Balance 720 ml Intake Oral 720 ml # Voids 2 1 # Bowel Movements 1 Dressing: dry Wound: clean Cardiovascular: RSR Respiratory: clear Abdomen: soft, flat, non-tender, present bowel sounds Extremities: no edema, no tenderness, no cyanosis Laboratory Tests Test 01/18/20 08:50 White Blood Count 3.2 K/UL (4.8-10.8) L Red Blood Count 3.88 M/UL (4.20-5.40) L Hemoglobin 11.2 G/DL (12.0-16.0) L Hematocrit 38.1 % (37.0-47.0) Mean Corpuscular Volume 98 FL (80-99) Mean Corpuscular Hemoglobin 28.9 PG (27.0-31.0) Mean Corpuscular Hemoglobin Concent 29.5 G/DL (32.0-36.0) L Red Cell Distribution Width 13.8 % (11.6-14.8) Platelet Count 108 K/UL (150-450) L Mean Platelet Volume 9.2 FL (6.5-10.1) Neutrophils (%) (Auto) % (45.0-75.0) Lymphocytes (%) (Auto) % (20.0-45.0) Monocytes (%) (Auto) % (1.0-10.0) Eosinophils (%) (Auto) % (0.0-3.0) Basophils (%) (Auto) % (0.0-2.0) Differential Total Cells Counted 100 Neutrophils % (Manual) 46 % (45-75) Lymphocytes % (Manual) 44 % (20-45) Monocytes % (Manual) 9 % (1-10) Eosinophils % (Manual) 1 % (0-3) Basophils % (Manual) 0 % (0-2) Band Neutrophils 0 % (0-8) Platelet Estimate Decreased L Platelet Morphology Normal Hypochromasia 1+ Sodium Level 142 MMOL/L (136-145) Potassium Level 3.7 MMOL/L (3.5-5.1) Chloride Level 110 MMOL/L (98-107) H Carbon Dioxide Level 25 MMOL/L (21-32) Anion Gap 7 mmol/L (5-15) Blood Urea Nitrogen 12 mg/dL (7-18) Creatinine 0.8 MG/DL (0.55-1.30) Estimat Glomerular Filtration Rate > 60 mL/min (>60) Glucose Level 79 MG/DL (74-106) Calcium Level 8.4 MG/DL (8.5-10.1) L Magnesium Level 2.4 MG/DL (1.8-2.4) Total Bilirubin 0.6 MG/DL (0.2-1.0) Aspartate Amino Transf (AST/SGOT) 21 U/L (15-37) Alanine Aminotransferase (ALT/SGPT) 14 U/L (12-78) Alkaline Phosphatase 55 U/L (46-116) Total Protein 6.4 G/DL (6.4-8.2) Albumin 2.8 G/DL (3.4-5.0) L Globulin 3.6 g/dL Albumin/Globulin Ratio 0.8 (1.0-2.7) L Thyroid Stimulating Hormone (TSH) 0.845 uiU/mL (0.358-3.740) Plan Problems: (1) Hypokalemia (2) Influenza-like symptoms (3) Abscess Assessment & Plan: 49-year-old female with a back abscess status post I&D a few days ago which is slowly healing since. There is a soft area induration still remaining no fluid collection no fluctuance I&D site noted healed closing. Scab formation identified. Periwound skin breakdown the epidermal region with dry skin. Fortunately at this time no further incision and drainage is necessary. Wound washed at bedside. Skin protectant applied for patient discomfort. Demetrius ssings applied. Will monitor over the course next day or 2 to ensure healing. Thank you for let me participate patient's care will follow with recommendations. The posterior elements are maintained, without evidence of acute fracture. The pedicles are intact. Multilevel degenerative end plate changes. The disc spaces are relatively preserved. Calcified disc bulge at L2-3 which contribute to mild spinal canal stenosis. Disc bulge at L4-5 which contribute to mild spinal canal stenosis. Moderate bilateral foraminal stenosis at L4-5. Atherosclerotic calcifications of the aorta. The kidneys symmetrically enhance. No hydronephrosis. Moderate fatigue with tension, correlate for constipation. Normal CT appearance of the uterus and urinary bladder. Intact superior and inferior pubic rami with degenerative changes of the bilateral hips. IMPRESSION: No lumbar spine fracture. Multilevel lumbar spondylosis, as described. (4) Weakness (5) COPD exacerbation Yfn Sparks Jan 18, 2020 17:44
[2020-01-18 20:00] VITALS: BP 111/66
--- NOTE | 2020-01-18 20:39 | Cardiology Report ---
APPROVED REPORT EKG Measurement Heart [id number] <Conclusion> Normal sinus rhythm Prolonged QT Abnormal ECG
[2020-01-19] VITALS: BP 91/60
--- NOTE | 2020-01-19 00:59 | Cardiology Progress Note ---
Subjective DATE OF SERVICE: Jan 18, 2020 Remains cooperative and compliant. Legs weak. No SOB. Urine tox. screen positive for PCP and cocaine. Covid swab negative Objective Last 24 Hour Vital Signs Date Time Temp Pulse Resp B/P (MAP) Pulse Ox O2 Delivery O2 Flow Rate FiO2 01/18/20 20:53 Room Air 01/18/20 20:00 97.2 74 20 111/66 (81) 99 01/18/20 19:45 78 18 100 Room Air 21 73 18 98 01/18/20 17:58 75 18 115/72 100 01/18/20 17:28 75 18 115/72 100 01/18/20 16:02 79 16 100 Room Air 21 80 18 96 01/18/20 16:00 97.5 75 18 115/72 (86) 100 01/18/20 12:00 75 16 100 Room Air 21 77 18 95 01/18/20 12:00 97.7 70 18 120/72 (88) 100 01/18/20 08:54 72 113/69 01/18/20 08:45 Room Air 01/18/20 08:09 98.1 72 18 113/69 (84) 99 01/18/20 04:00 97.9 85 20 115/67 (83) 98 ROS: unchanged from 01/16/20, unless noted. HEENT: normal ENT inspection, other - scant thrush; tongue ring site clean RHYTHM: NSR LUNGS: bilateral rhonchi - few CARDIAC: normal rate, regular rhythm, normal S1 and S2 ABDOMEN: normal bowel sounds, non tender, soft, no organomegaly EXTREMITIES: normal range of motion, non-tender, trace edema, other - strength intact, but gait unsteady Laboratory Tests Test 01/18/20 08:50 White Blood Count 3.2 K/UL (4.8-10.8) L Red Blood Count 3.88 M/UL (4.20-5.40) L Hemoglobin 11.2 G/DL (12.0-16.0) L Hematocrit 38.1 % (37.0-47.0) Mean Corpuscular Volume 98 FL (80-99) Mean Corpuscular Hemoglobin 28.9 PG (27.0-31.0) Mean Corpuscular Hemoglobin Concent 29.5 G/DL (32.0-36.0) L Red Cell Distribution Width 13.8 % (11.6-14.8) Platelet Count 108 K/UL (150-450) L Mean Platelet Volume 9.2 FL (6.5-10.1) Neutrophils (%) (Auto) % (45.0-75.0) Lymphocytes (%) (Auto) % (20.0-45.0) Monocytes (%) (Auto) % (1.0-10.0) Eosinophils (%) (Auto) % (0.0-3.0) Basophils (%) (Auto) % (0.0-2.0) Differential Total Cells Counted 100 Neutrophils % (Manual) 46 % (45-75) Lymphocytes % (Manual) 44 % (20-45) Monocytes % (Manual) 9 % (1-10) Eosinophils % (Manual) 1 % (0-3) Basophils % (Manual) 0 % (0-2) Band Neutrophils 0 % (0-8) Platelet Estimate Decreased L Platelet Morphology Normal Hypochromasia 1+ Sodium Level 142 MMOL/L (136-145) Potassium Level 3.7 MMOL/L (3.5-5.1) Chloride Level 110 MMOL/L (98-107) H Carbon Dioxide Level 25 MMOL/L (21-32) Anion Gap 7 mmol/L (5-15) Blood Urea Nitrogen 12 mg/dL (7-18) Creatinine 0.8 MG/DL (0.55-1.30) Estimat Glomerular Filtration Rate > 60 mL/min (>60) Glucose Level 79 MG/DL (74-106) Calcium Level 8.4 MG/DL (8.5-10.1) L Magnesium Level 2.4 MG/DL (1.8-2.4) Total Bilirubin 0.6 MG/DL (0.2-1.0) Aspartate Amino Transf (AST/SGOT) 21 U/L (15-37) Alanine Aminotransferase (ALT/SGPT) 14 U/L (12-78) Alkaline Phosphatase 55 U/L (46-116) Total Protein 6.4 G/DL (6.4-8.2) Albumin 2.8 G/DL (3.4-5.0) L Globulin 3.6 g/dL Albumin/Globulin Ratio 0.8 (1.0-2.7) L Thyroid Stimulating Hormone (TSH) 0.845 uiU/mL (0.358-3.740) Microbiology Date/Time Source Procedure Growth Status 01/16/20 21:30 Nasopharynx SARS-CoV-2 RdRp Gene Assay - Final Complete 01/16/20 19:45 Urine,Clean Catch Urine Culture - Preliminary Gram Negative [place] Resulted 01/16/20 19:45 Nose - Final Complete 01/16/20 19:45 Nose - Final Complete Assessment/Plan Assessment/Plan COPD exacerbation Polysubstance abuse Possible PNA Possible Covid-19 infection Hypokalemia due to thiazide therapy Hypertension/HHD Bipolar dis with probable hx psychosis Back abscess - s/p I&D, now healing. Abx Bronchodilators Steroids with taper DVT prophyl PT eval Replace potassium as needed No resumption of thiazide; add aldactone for interim. Patient made aware of diuretic rx and associated risk of hypokalemia. Skin care; surgical input appreciated. Counselling regarding cocaine and PCP use. Kwesi Barton MD Jan 19, 2020 00:59
[2020-01-19] MEDS: Albuterol/Ipratropium 3ml neb HHN SCH ×6 (02:32→23:00)
[2020-01-19 04:00] VITALS: BP 133/76
[2020-01-19 06:47] LABS: BASOPHILS % (AUTO) 0.3 % (0.0-2.0); EOSINOPHILS % (AUTO) 0.2 % (0.0-3.0); HEMOGLOBIN 11.9 G/DL (12.0-16.0); MEAN CORPUSCULAR VOLUME 91 FL (80-99); MONOCYTES % (AUTO) 6.2 % (1.0-10.0); NEUTROPHILS % (AUTO) 53.3 % (45.0-75.0); PLATELET COUNT 254 K/UL (150-450); RED BLOOD COUNT 4.28 M/UL (4.20-5.40); RED CELL DISTRIBUTION WIDTH 16.5 % (11.6-14.8); WHITE BLOOD COUNT 6.2 K/UL (4.8-10.8)
[2020-01-19 07:02] LABS: ALANINE AMINOTRANSFERASE 19 U/L (12-78); ALBUMIN/GLOBULIN RATIO 0.8 (1.0-2.7); ALKALINE PHOSPHATASE 63 U/L (46-116); ANION GAP 11 mmol/L (5-15); ASPARTATE AMINO TRANSFERASE 15 U/L (15-37); BILIRUBIN,TOTAL 0.1 MG/DL (0.2-1.0); BLOOD UREA NITROGEN 9 mg/dL (7-18); CALCIUM 8.4 MG/DL (8.5-10.1); CARBON DIOXIDE 21 MMOL/L (21-32); CHLORIDE 110 MMOL/L (98-107); CREATININE 0.7 MG/DL (0.55-1.30); POTASSIUM 2.8 MMOL/L (3.5-5.1); SODIUM 142 MMOL/L (136-145)
[2020-01-19 08:00] VITALS: BP 144/71
[2020-01-19] MEDS: Spironolactone 25mg tab ORAL SCH (09:03)
[2020-01-19] MEDS: BuPROPion SR 150mg tab ORAL SCH (09:03)
[2020-01-19] MEDS: Lactobacillus-GG tablet ORAL SCH ×3 (09:03→17:28)
[2020-01-19] MEDS: QUEtiapine 200mg tab ORAL SCH ×2 (09:03→20:30)
[2020-01-19] MEDS: Heparin 5000 units/ml inj SUBQ SCH ×2 (09:05→20:31)
[2020-01-19 12:00] VITALS: BP 140/68
--- NOTE | 2020-01-19 14:00 | Surgery Progress Note ---
Surgery Progress Note Subjective Symptoms: improved, tolerating diet, voiding well, passing flatus, BM Additional Comments c/o itching wound cleaned for her Objective Last 24 Hour Vital Signs Date Time Temp Pulse Resp B/P (MAP) Pulse Ox O2 Delivery O2 Flow Rate FiO2 01/19/20 09:04 73 144/71 01/19/20 08:00 98.4 73 20 144/71 (95) 97 01/19/20 04:00 97.0 73 20 133/76 (95) 97 01/19/20 00:00 97.7 77 16 91/60 (70) 95 01/18/20 20:53 Room Air 01/18/20 20:00 97.2 74 20 111/66 (81) 99 01/18/20 19:45 78 18 100 Room Air 21 73 18 98 01/18/20 17:58 75 18 115/72 100 01/18/20 17:28 75 18 115/72 100 01/18/20 16:02 79 16 100 Room Air 21 80 18 96 01/18/20 16:00 97.5 75 18 115/72 (86) 100 I&O Intake and Output 01/18/20 01/19/20 19:00 07:00 Intake Total 1065 ml Balance 1065 ml Intake Oral 1010 ml IV Total 55 ml # Voids 2 2 Dressing: dry Wound: clean Cardiovascular: RSR Respiratory: clear Abdomen: soft, non-tender, present bowel sounds Extremities: no edema, no tenderness, no cyanosis Laboratory Tests Test 01/19/20 05:50 White Blood Count 6.2 K/UL (4.8-10.8) # Red Blood Count 4.28 M/UL (4.20-5.40) Hemoglobin 11.9 G/DL (12.0-16.0) L Hematocrit 39.0 % (37.0-47.0) Mean Corpuscular Volume 91 FL (80-99) Mean Corpuscular Hemoglobin 27.9 PG (27.0-31.0) Mean Corpuscular Hemoglobin Concent 30.6 G/DL (32.0-36.0) L Red Cell Distribution Width 16.5 % (11.6-14.8) H Platelet Count 254 K/UL (150-450) # Mean Platelet Volume 8.0 FL (6.5-10.1) Neutrophils (%) (Auto) 53.3 % (45.0-75.0) Lymphocytes (%) (Auto) 40.0 % (20.0-45.0) Monocytes (%) (Auto) 6.2 % (1.0-10.0) Eosinophils (%) (Auto) 0.2 % (0.0-3.0) Basophils (%) (Auto) 0.3 % (0.0-2.0) Sodium Level 142 MMOL/L (136-145) Potassium Level 2.8 MMOL/L (3.5-5.1) L Chloride Level 110 MMOL/L (98-107) H Carbon Dioxide Level 21 MMOL/L (21-32) Anion Gap 11 mmol/L (5-15) Blood Urea Nitrogen 9 mg/dL (7-18) Creatinine 0.7 MG/DL (0.55-1.30) Estimat Glomerular Filtration Rate > 60 mL/min (>60) Glucose Level 88 MG/DL (74-106) Calcium Level 8.4 MG/DL (8.5-10.1) L Total Bilirubin 0.1 MG/DL (0.2-1.0) L Aspartate Amino Transf (AST/SGOT) 15 U/L (15-37) Alanine Aminotransferase (ALT/SGPT) 19 U/L (12-78) Alkaline Phosphatase 63 U/L (46-116) Total Protein 7.0 G/DL (6.4-8.2) Albumin 3.0 G/DL (3.4-5.0) L Globulin 4.0 g/dL Albumin/Globulin Ratio 0.8 (1.0-2.7) L Plan Problems: (1) Hypokalemia (2) Influenza-like symptoms (3) Abscess Assessment & Plan: 49-year-old female with a back abscess status post I&D a few days ago which is slowly healing since. There is a soft area induration still remaining no fluid collection no fluctuance I&D site noted healed closing. Scab formation identified. Periwound skin breakdown the epidermal region with dry skin. Fortunately at this time no further incision and drainage is necessary. Wound washed at bedside. Skin protectant applied for patient discomfort. Dressings applied. Will monitor over the course next day or 2 to ensure healing. Thank you for let me participate patient's care will follow with recommendations. The posterior elements are maintained, without evidence of acute fracture. The pedicles are intact. Multilevel degenerative end plate changes. The disc spaces are relatively preserved. Calcified disc bulge at L2-3 which contribute to mild spinal canal stenosis. Disc bulge at L4-5 which contribute to mild spinal canal stenosis. Moderate bilateral foraminal stenosis at L4-5. Atherosclerotic calcifications of the aorta. The kidneys symmetrically enhance. No hydronephrosis. Moderate fatigue with tension, correlate for constipation. Normal CT appearance of the uterus and urinary bladder. Intact superior and inferior pubic rami with degenerative changes of the bilateral hips. IMPRESSION: No lumbar spine fracture. Multilevel lumbar spondylosis, as described. (4) Weakness (5) COPD exacerbation Yfn Sparks Jan 19, 2020 14:00
[2020-01-19] MEDS: Piperacillin/Tazobactam 3.375 GM in NS 110 ML IVPB SCH ×2 (14:21→23:27)
[2020-01-19 16:00] VITALS: BP 121/64
[2020-01-19 20:00] VITALS: BP 133/85
[2020-01-19] MEDS: LORazepam 1mg tab ORAL PRN (20:34)
--- NOTE | 2020-01-20 01:32 | Cardiology Progress Note ---
Subjective DATE OF SERVICE: Jan 19, 2020 Remains cooperative and compliant. Legs weak. No SOB. Urine tox. screen positive for PCP and cocaine. Covid swab negative Urine culture revealed ESBL E.coli. Objective Last 24 Hour Vital Signs Date Time Temp Pulse Resp B/P (MAP) Pulse Ox O2 Delivery O2 Flow Rate FiO2 01/19/20 21:04 81 18 121/64 100 01/19/20 20:34 81 18 121/64 100 01/19/20 20:00 97.9 68 20 133/85 (101) 99 01/19/20 19:32 81 18 100 Room Air 21 68 18 96 01/19/20 16:00 98.6 65 20 121/64 (83) 97 01/19/20 15:28 79 16 99 Room Air 21 01/19/20 15:19 63 16 98 Room Air 21 01/19/20 12:00 98.0 71 20 140/68 (92) 97 01/19/20 09:04 73 144/71 01/19/20 09:00 Room Air 01/19/20 08:00 98.4 73 20 144/71 (95) 97 01/19/20 04:00 97.0 73 20 133/76 (95) 97 ROS: unchanged from 01/16/20, unless noted. HEENT: normal ENT inspection, other - scant thrush; tongue ring site clean RHYTHM: NSR LUNGS: bilateral rhonchi - few CARDIAC: normal rate, regular rhythm, normal S1 and S2 ABDOMEN: normal bowel sounds, non tender, soft, no organomegaly EXTREMITIES: normal range of motion, non-tender, trace edema, other - strength intact, but gait unsteady Laboratory Tests Test 01/19/20 05:50 White Blood Count 6.2 K/UL (4.8-10.8) # Red Blood Count 4.28 M/UL (4.20-5.40) Hemoglobin 11.9 G/DL (12.0-16.0) L Hematocrit 39.0 % (37.0-47.0) Mean Corpuscular Volume 91 FL (80-99) Mean Corpuscular Hemoglobin 27.9 PG (27.0-31.0) Mean Corpuscular Hemoglobin Concent 30.6 G/DL (32.0-36.0) L Red Cell Distribution Width 16.5 % (11.6-14.8) H Platelet Count 254 K/UL (150-450) # Mean Platelet Volume 8.0 FL (6.5-10.1) Neutrophils (%) (Auto) 53.3 % (45.0-75.0) Lymphocytes (%) (Auto) 40.0 % (20.0-45.0) Monocytes (%) (Auto) 6.2 % (1.0-10.0) Eosinophils (%) (Auto) 0.2 % (0.0-3.0) Basophils (%) (Auto) 0.3 % (0.0-2.0) Sodium Level 142 MMOL/L (136-145) Potassium Level 2.8 MMOL/L (3.5-5.1) L Chloride Level 110 MMOL/L (98-107) H Carbon Dioxide Level 21 MMOL/L (21-32) Anion Gap 11 mmol/L (5-15) Blood Urea Nitrogen 9 mg/dL (7-18) Creatinine 0.7 MG/DL (0.55-1.30) Estimat Glomerular Filtration Rate > 60 mL/min (>60) Glucose Level 88 MG/DL (74-106) Calcium Level 8.4 MG/DL (8.5-10.1) L Total Bilirubin 0.1 MG/DL (0.2-1.0) L Aspartate Amino Transf (AST/SGOT) 15 U/L (15-37) Alanine Aminotransferase (ALT/SGPT) 19 U/L (12-78) Alkaline Phosphatase 63 U/L (46-116) Total Protein 7.0 G/DL (6.4-8.2) Albumin 3.0 G/DL (3.4-5.0) L Globulin 4.0 g/dL Albumin/Globulin Ratio 0.8 (1.0-2.7) L Assessment/Plan Assessment/Plan COPD exacerbation ESBL Ecoli UTI Polysubstance abuse Possible PNA Possible Covid-19 infection Hypokalemia due to thiazide therapy Hypertension/HHD Bipolar dis with probable hx psychosis Back abscess - s/p I&D, now healing. Abx adjusted for culture results Bronchodilators Steroids with taper on-going DVT prophyl PT eval Replace potassium No resumption of thiazide; add aldactone for interim. Patient made aware of diuretic rx and associated risk of hypokalemia. Skin care; surgical input appreciated. Counselling regarding cocaine and PCP use. Kwesi Barton MD Jan 20, 2020 01:32
[2020-01-20] MEDS: Albuterol/Ipratropium 3ml neb HHN SCH ×4 (02:28→15:47)
[2020-01-20 04:00] VITALS: BP 131/73
[2020-01-20] MEDS: Piperacillin/Tazobactam 3.375 GM in NS 110 ML IVPB SCH ×2 (06:01→13:49)
[2020-01-20 07:43] LABS: ALANINE AMINOTRANSFERASE 23 U/L (12-78); ALBUMIN 2.9 G/DL (3.4-5.0); ALBUMIN/GLOBULIN RATIO 0.8 (1.0-2.7); ALKALINE PHOSPHATASE 60 U/L (46-116); ANION GAP 10 mmol/L (5-15); ASPARTATE AMINO TRANSFERASE 14 U/L (15-37); BILIRUBIN,TOTAL 0.2 MG/DL (0.2-1.0); BLOOD UREA NITROGEN 9 mg/dL (7-18); CALCIUM 8.1 MG/DL (8.5-10.1); CARBON DIOXIDE 22 MMOL/L (21-32); CHLORIDE 110 MMOL/L (98-107); CREATININE 0.7 MG/DL (0.55-1.30); SODIUM 141 MMOL/L (136-145)
[2020-01-20 08:00] VITALS: BP 126/69
[2020-01-20] MEDS: BuPROPion SR 150mg tab ORAL SCH (08:22)
[2020-01-20] MEDS: QUEtiapine 200mg tab ORAL SCH (08:22)
[2020-01-20] MEDS: Spironolactone 25mg tab ORAL SCH (08:23)
[2020-01-20] MEDS: Lactobacillus-GG tablet ORAL SCH ×3 (08:23→17:26)
[2020-01-20] MEDS: Heparin 5000 units/ml inj SUBQ SCH (08:24)
--- NOTE | 2020-01-20 10:15 | Consultation ---
DATE OF CONSULTATION: 01/20/2020 PULMONARY CONSULTATION HISTORY OF PRESENT ILLNESS: This is a 49-year-old female who looks much older than stated age. She reports history of COPD on chronic inhaler therapy. She is also an active smoker. The patient reports cough and congestion. She also reports left leg pain. The patient has been on antibiotics for recent drainage of back abscess. PAST MEDICAL HISTORY: Hypertension, COPD, chronic tobacco use, bipolar disorder. PAST SURGICAL HISTORY: None. ALLERGIES: Paxil and lurasidone. CURRENT MEDICATIONS: Include Zosyn, Tylenol, amlodipine, Wellbutrin, clonidine, DuoNebs, subcutaneous heparin, lactobacillus, Ativan, prednisone orally, Seroquel, Aldactone, and potassium. REVIEW OF SYSTEMS: The patient denies any headaches, hematemesis, melena, hematochezia, night sweats, or weight loss. PHYSICAL EXAMINATION: GENERAL: Reveals a 49-year-old female. VITAL SIGNS: Blood pressure is 120/60, heart rate 64, respirations 18, O2 saturation 98% on room air. HEENT: Unremarkable. CHEST: Clear breath sounds bilaterally. ABDOMEN: Soft. EXTREMITIES: There is no edema. NEUROLOGIC: Nonfocal. LABORATORY AND DIAGNOSTIC DATA: Labs show white count 6.2, hemoglobin 11.9. Chemistries are notable for potassium of 3. Calcium 8.1. Albumin is 2.9. TSH 1.6. IMPRESSION: 1. Hypoalbuminemia. 2. Moderate protein-calorie malnutrition. 3. Exacerbation of COPD. 4. Hypokalemia. 5. Active smoker. 6. Psych disorder. DISCUSSION: Continue steroids. Continue oxygen and pulmonary hygiene. Continue broad-spectrum antibiotics. X-ray does not show any effusions. We will follow carefully. Elijah Strickland M.D. DR: Ammy JOB#: [id number] CC:
--- NOTE | 2020-01-20 11:20 | Surgery Progress Note ---
Surgery Progress Note Subjective Symptoms: improved, tolerating diet, passing flatus Objective Last 24 Hour Vital Signs Date Time Temp Pulse Resp B/P (MAP) Pulse Ox O2 Delivery O2 Flow Rate FiO2 01/20/20 11:15 64 16 98 Room Air 21 01/20/20 09:00 Room Air 01/20/20 08:22 69 126/69 01/20/20 08:00 98.3 69 18 126/69 (88) 98 01/20/20 04:00 98.4 70 20 131/73 (92) 98 01/19/20 21:04 81 18 121/64 100 01/19/20 21:00 Room Air 01/19/20 20:34 81 18 121/64 100 01/19/20 20:00 97.9 68 20 133/85 (101) 99 01/19/20 19:32 81 18 100 Room Air 21 68 18 96 01/19/20 16:00 98.6 65 20 121/64 (83) 97 01/19/20 15:28 79 16 99 Room Air 01/19/20 15:19 63 16 98 Room Air 21 01/19/20 12:00 98.0 71 20 140/68 (92) 97 I&O Intake and Output 01/19/20 01/20/20 19:00 07:00 Intake Total 1800 ml 200 ml Balance 1800 ml 200 ml Intake Oral 1800 ml 200 ml # Voids 3 3 Dressing: dry Wound: clean Cardiovascular: RSR Respiratory: clear Abdomen: soft, non-tender, present bowel sounds Extremities: no edema, no tenderness, no cyanosis Laboratory Tests Test 01/20/20 05:20 Sodium Level 141 MMOL/L (136-145) Potassium Level 3.0 MMOL/L (3.5-5.1) L Chloride Level 110 MMOL/L (98-107) H Carbon Dioxide Level 22 MMOL/L (21-32) Anion Gap 10 mmol/L (5-15) Blood Urea Nitrogen 9 mg/dL (7-18) Creatinine 0.7 MG/DL (0.55-1.30) Estimat Glomerular Filtration Rate > 60 mL/min (>60) Glucose Level 91 MG/DL (74-106) Calcium Level 8.1 MG/DL (8.5-10.1) L Magnesium Level 2.1 MG/DL (1.8-2.4) Total Bilirubin 0.2 MG/DL (0.2-1.0) Aspartate Amino Transf (AST/SGOT) 14 U/L (15-37) L Alanine Aminotransferase (ALT/SGPT) 23 U/L (12-78) Alkaline Phosphatase 60 U/L (46-116) Pro-B-Type Natriuretic Peptide 363 pg/mL (0-125) H Total Protein 6.7 G/DL (6.4-8.2) Albumin 2.9 G/DL (3.4-5.0) L Globulin 3.8 g/dL Albumin/Globulin Ratio 0.8 (1.0-2.7) L Plan Problems: (1) Hypokalemia (2) Influenza-like symptoms (3) Abscess Assessment & Plan: 49-year-old female with a back abscess status post I&D a few days ago which is slowly healing since. There is a soft area induration still remaining no fluid collection no fluctuance I&D site noted healed closing. Scab formation identified. Periwound skin breakdown the epidermal region with dry skin. Fortunately at this time no further incision and drainage is necessary. Wound washed at bedside. Skin protectant applied for patient discomfort. Dressings applied. Will monitor over the course next day or 2 to ensure heal ing. Thank you for let me participate patient's care will follow with recommendations. The posterior elements are maintained, without evidence of acute fracture. The pedicles are intact. Multilevel degenerative end plate changes. The disc spaces are relatively preserved. Calcified disc bulge at L2-3 which contribute to mild spinal canal stenosis. Disc bulge at L4-5 which contribute to mild spinal canal stenosis. Moderate bilateral foraminal stenosis at L4-5. Atherosclerotic calcifications of the aorta. The kidneys symmetrically enhance. No hydronephrosis. Moderate fatigue with tension, correlate for constipation. Normal CT appearance of the uterus and urinary bladder. Intact superior and inferior pubic rami with degenerative changes of the bilateral hips. IMPRESSION: No lumbar spine fracture. Multilevel lumbar spondylosis, as described. (4) Weakness (5) COPD exacerbation Yfn Sparks Jan 20, 2020 11:20
[2020-01-20 12:00] VITALS: BP 138/88
[2020-01-20] MEDS ORDERED: SPIRONOLACTONE25 MG ORAL (13:23)
[2020-01-20 16:00] VITALS: BP 147/88
--- NOTE | 2020-01-20 21:56 | Cardiology Progress Note ---
Subjective DATE OF SERVICE: Jan 20, 2020 Remains cooperative and compliant. Now ambulatory. Denies pain. No SOB. Urine tox. screen positive for PCP and cocaine. Covid swab negative Urine culture revealed ESBL E.coli. Objective Last 24 Hour Vital Signs Date Time Temp Pulse Resp B/P (MAP) Pulse Ox O2 Delivery O2 Flow Rate FiO2 01/20/20 16:00 97.9 68 18 147/88 (107) 100 01/20/20 15:59 63 16 100 Room Air 21 01/20/20 15:47 62 16 99 Room Air 21 01/20/20 12:00 97.5 66 18 138/88 (105) 100 01/20/20 11:24 68 16 100 Room Air 21 01/20/20 11:15 64 16 98 Room Air 01/20/20 09:00 Room Air 01/20/20 08:22 69 126/69 01/20/20 08:00 98.3 69 18 126/69 (88) 98 01/20/20 04:00 98.4 70 20 131/73 (92) 98 ROS: unchanged from 01/16/20, unless noted. HEENT: normal ENT inspection, other - scant thrush; tongue ring site clean RHYTHM: NSR LUNGS: bilateral rhonchi - few CARDIAC: normal rate, regular rhythm, normal S1 and S2 ABDOMEN: normal bowel sounds, non tender, soft, no organomegaly EXTREMITIES: normal range of motion, non-tender, trace edema, other - strength intact, but gait unsteady Laboratory Tests Test 01/20/20 05:20 Sodium Level 141 MMOL/L (136-145) Potassium Level 3.0 MMOL/L (3.5-5.1) L Chloride Level 110 MMOL/L (98-107) H Carbon Dioxide Level 22 MMOL/L (21-32) Anion Gap 10 mmol/L (5-15) Blood Urea Nitrogen 9 mg/dL (7-18) Creatinine 0.7 MG/DL (0.55-1.30) Estimat Glomerular Filtration Rate > 60 mL/min (>60) Glucose Level 91 MG/DL (74-106) Calcium Level 8.1 MG/DL (8.5-10.1) L Magnesium Level 2.1 MG/DL (1.8-2.4) Total Bilirubin 0.2 MG/DL (0.2-1.0) Aspartate Amino Transf (AST/SGOT) 14 U/L (15-37) L Alanine Aminotransferase (ALT/SGPT) 23 U/L (12-78) Alkaline Phosphatase 60 U/L (46-116) Pro-B-Type Natriuretic Peptide 363 pg/mL (0-125) H Total Protein 6.7 G/DL (6.4-8.2) Albumin 2.9 G/DL (3.4-5.0) L Globulin 3.8 g/dL Albumin/Globulin Ratio 0.8 (1.0-2.7) L Assessment/Plan Assessment/Plan COPD exacerbation ESBL Ecoli UTI Polysubstance abuse Possible PNA Possible Covid-19 infection Hypokalemia due to thiazide therapy Hypertension/HHD Bipolar dis with probable hx psychosis Back abscess - s/p I&D, now healing. Abx adjusted to oral macrobid for dischg Bronchodilators Steroids discont'd DVT prophyl PT eval Replace potassium No resumption of thiazide; add aldactone for interim. Patient made aware of diuretic rx and associated risk of hypokalemia. Skin care; surgical input appreciated. Counselling regarding cocaine and PCP use. Kwesi Barton MD Jan 20, 2020 21:56
--- NOTE | 2020-01-23 11:26 | Discharge Summary ---
Discharge Summary Discharge Summary _ DATE OF ADMISSION: 01/16/2020 DATE OF DISCHARGE: 01/20/2020 DISCHARGED BY: REASON FOR ADMISSION: 49 years old female with past medical history of COPD, hypertension, bipolar disorder, presented to emergency department with cough. Symptoms gradually worsened over the last 3 days. Patient reported using inhaler more frequently. Patient reported productive cough with green sputum production. Chest pain occurred only with cough. No nausea , vomiting or diarrhea. Patient recently undergone drainage of the back abscess, which did not improve much as per patient. Patient was not aware of any Covid exposure and did not have any Covid test prior to the visit. Upon evaluation COVID-19 was negative. Influenza screen was negative. Patient was febrile. Pulse oximetry was stable on room air. Laboratory work-up revealed no leukocytosis,hemoglobin 11.3 ,hematocrit 35.3, platelet count 246. Potassium 2.3, magnesium 2.4, stable other electrolytes and renal parameters ; stable LFT. EKG revealed prolonged QT interval otherwise normal Urinalysis revealed pyuria revealed no pyuria but showed moderate bacteria and +1 leukocyte esterase. Urine toxicology screen was positive for phencyclidine, cocaine and marijuana. Chest x-ray demonstrated no acute cardiopulmonary pathology. In emergency department patient received Tylenol , nebulizing treatment with bronchodilator, and oral prednisone. Patient started on potassium replacement and subsequently admitted for further management. CONSULTANTS: pulmonary Dr. Strickland surgery Dr. Sparks [facility] COURSE: Patient admitted to telemetry floor and kept on cardiac monitoring. Potassium was replaced. Hypokalemia was most likely due to hydrochlorothiazide , which was thus discontinued and no resumption of thiazide upon discharge. Renal parameters AND electrolytes were further closely monitorED, electrolytes corrected as needed , AND nephrotoxic's were avoided . TSH within normal limits. Supplemental oxygen provided and titrated to keep pulse oximetry above 92%. Bronchodilator therapy provided as needed. Patient started on steroids with gradual tapering and empiric antibiotic. DVT prophylaxis provided. Urine culture revealed E. coli ESBL. Patient was on antibiotics for UTI. Surgeon seen and evaluated patient. Site of the former abscess , status post I&D, WAS slowly healing. Scab formation WAS identified. No need for further incision and drainage at this time. Wound care provided per surgeon recommendation. Fevers resolved, no leukocytosis . Psychiatric medication resumed . Withdrawal precaution maintained/ Patient was counseled on abstinence from illicit street drugs. Patient clinically stabilized and was ready for discharge. FINAL DIAGNOSES: COPD exacerbation Possible pneumonia Hypokalemia due to thiazide diuretic UTI with E. coli ESBL Hypertension/hypertensive heart disease Active smoker Moderate protein calorie malnutrition Psych disorder Polysubstance abuse Bipolar disorder with probable history of psychosis Back abscess , status post recent I&D DISCHARGE MEDICATIONS: See Medication Reconciliation list. DISCHARGE INSTRUCTIONS: Patient was discharged to [facility]. Follow-up with a primary care provider in 1 week. I have been assigned to dictate discharge summary for this account. I was not involved subjective fevers. Pamela Rodriguez NP Jan 23, 2020 11:26
== END 2020-01-20 18:45 | DRG 140 ==
LOC: EDBD 18:57 → EMR 20:00 → 2E 21:54 → UNDOADMIN 21:54 → EDBEDREQ 23:05 → 4E 01-18 03:52
DX: J44.0 Chronic obstructive pulmonary disease with (acute) lower respiratory infection (principal); J44.1 Chronic obstructive pulmonary disease with (acute) exacerbation; J18.9 Pneumonia, unspecified organism; J20.9 Acute bronchitis, unspecified; G92 Toxic encephalopathy; E87.6 Hypokalemia; T50.2X5A Adverse effect of carbonic-anhydrase inhibitors, benzothiadiazides and other diuretics, initial encounter; N39.0 Urinary tract infection, site not specified; E44.0 Moderate protein-calorie malnutrition; I70.0 Atherosclerosis of aorta; L02.212 Cutaneous abscess of back [any part, except buttock and flank]; Z88.8 Allergy status to other drugs, medicaments and biological substances; F31.9 Bipolar disorder, unspecified; I10 Essential (primary) hypertension; F19.10 Other psychoactive substance abuse, uncomplicated; M47.896 Other spondylosis, lumbar region; F17.200 Nicotine dependence, unspecified, uncomplicated; Z20.828 Contact with and (suspected) exposure to other viral communicable diseases; B96.20 Unspecified Escherichia coli [E. coli] as the cause of diseases classified elsewhere; Z16.12 Extended spectrum beta lactamase (ESBL) resistance; I11.9 Hypertensive heart disease without heart failure
CPT/HCPCS: 36415; 71045; 72132; 80053; 80307; 81003; 81025; 83735; 83880; 84443; 85007; 85025; 86710; 87086; 87181; 93005; 94640; 94664; 96360; 99285; J7030; J7620; J8499; U0002